=== PATIENT | male | born 1990 | race Caucasian/White ===

== ENCOUNTER 2019-01-05 21:43 | Emergency (ER) | payer OTHER ==
[~2019-01-05] VITALS: Ht 175.3 cm; Wt 99.8 kg
[2019-01-05 22:00] VITALS: BP 170/97
--- NOTE | 2019-01-05 22:28 | PHYS DOC ---
Past Medical History Past Medical History: Anxiety, Asthma, Hypertension Past Surgical History: Other Additional Past Surgical Histo: DENTAL Alcohol Use: Rarely Drug Use: Marijuana Adult General Chief Complaint Chief Complaint: SHOULDER INJURY HPI HPI Patient is a 28 year old male with history of anxiety, hypertension, who presents to the ED today complaining of a throbbing intermittent 9 out of 10 right shoulder pain that began today after he fell. Patient states he was running up some steps when he slipped and fell hitting his right shoulder on a door jam. Denies any loss of consciousness. He states he took marijuana for his pain with slight relief. Review of Systems Review of Systems Constitutional: Denies fever or chills [] Musculoskeletal: Reports right shoulder pain Integument: Denies rash or skin lesions [] Neurologic: Denies headache, focal weakness or sensory changes [] All other systems were reviewed and found to be within normal limits, except as documented in this note. Allergies Allergies Allergies Coded Allergies Type Severity Reaction Last Updated Verified amoxicillin Allergy Unknown Unknown 01/05/19 Yes Physical Exam Physical Exam Constitutional: Well developed, well nourished, no acute distress, non-toxic appearance. [] Skin: Warm, dry, no erythema, no rash. [] Back: No tenderness, no CVA tenderness. [] Extremities: Morbidly obese patient, right shoulder with no obvious deformity. Tenderness on palpation of the right ACM. Full active range of motion to the right shoulder. Adequate radial, medial, ulnar sensation to the right upper extremity. +2 right radial pulse. Cap refill less than 2 seconds the right fingers. Neurologic: Alert and oriented X 3, normal motor function, normal sensory function, no focal deficits noted. [] Psychologic: Affect normal, judgement normal, mood normal. [] Current Patient Data Vital Signs Vital Signs Date Time Temp Pulse Resp B/P (MAP) Pulse Ox O2 Delivery O2 Flow Rate FiO2 01/05/19 22:00 98.7 110 24 96 Room Air 98.7 EKG EKG [] Radiology/Procedures Radiology/Procedures [] Course & Med Decision Making Course & Med Decision Making Pertinent Labs and Imaging studies reviewed. (See chart for details) This is a 28-year-old male patient presenting to the ED today with right shoulder pain after falling on it. Right shoulder x-rays interpreted by Dr. Moreno are negative for any acute findings. Sling provided to the right shoulder by the ED RN, neurovascular exam is intact. Ice elevation encouraged. Discharged with Medrol Dosepak and naproxen. Follow-up with orthopedic doctor in one week if pain continues. Mira Disclaimer Mira Disclaimer This electronic medical record was generated, in whole or in part, using a voice recognition dictation system. Departure Departure Impression: Primary Impression: Fall Additional Impression: Contusion of right shoulder Disposition: HOME, SELF-CARE Condition: STABLE Referrals: KACY ARAYA II, MD follow up in one week Patient Instructions: Contusion, [id number], Fall Prevention and Home Safety Additional Instructions: You were evaluated in the emergency room for right shoulder contusion, your right shoulder x-rays are negative for any acute findings. Use the sling provided as tolerated and needed. Please remove the right upper extremity from the sling every hour and take it through full range of motion. Follow up with your doctor and the provided orthopedic doctor in 1 week Scripts Methylprednisolone (MEDROL) 4 Mg Tab.ds.pk 1 PKG PO UD, #1 PKG Prov: ALEJANDRO COWAN APRN 01/05/19 Problem Qualifiers Primary Impression: Fall Encounter type: initial encounter Qualified Codes: W19.XXXA - Unspecified fall, initial encounter Additional Impression: Contusion of right shoulder Encounter type: initial encounter Qualified Codes: S40.011A - Contusion of right shoulder, initial encounter ALEJANDRO COWAN APRN Jan 05, 2019 22:28
[2019-01-05] MEDS ORDERED: METH4TAB2 PO (22:32)
[2019-01-05] MEDS ORDERED: HYDROcodone/APAP 5/325MG 1 TAB TABLET PO ONE (22:45)
--- NOTE | 2019-01-05 23:07 | RAD ---
Three-view right shoulder radiographs 01/05/2019 CLINICAL HISTORY: Right shoulder pain. AP internal and external rotation and transscapular digital radiographs of the right shoulder were obtained. No fracture or dislocation right shoulder is seen. No significant degenerative changes are noted. IMPRESSION: No fracture or dislocation of the right shoulder is seen. Electronically signed by: Aris Veloz MD (01/05/2019 11:04 PM) [facility]
== END 2019-01-05 22:48 | disposition home or self-care (01) ==
LOC: ER 21:43
DX: S40.011A Contusion of right shoulder, initial encounter (principal); I10 Essential (primary) hypertension; J45.909 Unspecified asthma, uncomplicated; Z88.1 Allergy status to other antibiotic agents; W01.198A Fall on same level from slipping, tripping and stumbling with subsequent striking against other object, initial encounter; Y93.02 Activity, running; Y92.89 Other specified places as the place of occurrence of the external cause; Y99.8 Other external cause status
CPT/HCPCS: 73030; 99284

== ENCOUNTER 2019-03-12 20:13 | Emergency (ER) | payer OTHER ==
[~2019-03-12] VITALS: Ht 175.3 cm; Wt 142.4 kg
[~2019-03-12 20:13] MED LIST: METH4TAB2 PO
[2019-03-12 20:48] VITALS: BP 119/63
[2019-03-12] MEDS ORDERED: DIAZ5TAB PO (21:16)
--- NOTE | 2019-03-12 21:16 | PHYS DOC ---
Past Medical History Past Medical History: Anxiety, Asthma, Hypertension Past Surgical History: Other Additional Past Surgical Histo: DENTAL Alcohol Use: Rarely Drug Use: Marijuana Adult General Chief Complaint Chief Complaint: ANXIETY/PANIC ATTACK HPI HPI 28-year-old male with a history of anxiety states his anxiety is flared up tonight. He states he normally holds his feelings in one his is having some anxiety but tonight he just couldn't do that. He doesn't have any medicine at home to help with his anxiety. He denies any suicidal or homicidal ideation. Came to the emergency department because he states he just can't get comfortable at home.[] Review of Systems Review of Systems Constitutional: Denies fever or chills [] Eyes: Denies change in visual acuity, redness, or eye pain [] HENT: Denies nasal congestion or sore throat [] Respiratory: Denies cough or shortness of breath [] Cardiovascular: No additional information not addressed in HPI [] GI: Denies abdominal pain, nausea, vomiting, bloody stools or diarrhea [] : Denies dysuria or hematuria [] Musculoskeletal: Denies back pain or joint pain [] Integument: Denies rash or skin lesions [] Neurologic: Denies headache, focal weakness or sensory changes [] Endocrine: Denies polyuria or polydipsia [] Psychiatric: Reports anxiety , All other systems were reviewed and found to be within normal limits, except as documented in this note. Allergies Allergies Allergies Coded Allergies Type Severity Reaction Last Updated Verified amoxicillin Allergy Unknown Unknown 01/05/19 Yes Physical Exam Physical Exam Constitutional: Well developed, well nourished, no acute distress, non-toxic appearance. [] HENT: Normocephalic, atraumatic, bilateral external ears normal, oropharynx moist, no oral exudates, nose normal. [] Eyes: PERRLA, EOMI, conjunctiva normal, no discharge. [] Neck: Normal range of motion, no tenderness, supple, no stridor. [] Cardiovascular:Heart rate regular rhythm, no murmur [] Lungs & Thorax: Bilateral breath sounds clear to auscultation [] Abdomen: Bowel sounds normal, soft, no tenderness, no masses, no pulsatile masses. [] Skin: Warm, dry, no erythema, no rash. [] Back: No tenderness, no CVA tenderness. [] Extremities: No tenderness, no cyanosis, no clubbing, ROM intact, no edema. [] Neurologic: Alert and oriented X 3, normal motor function, normal sensory function, no focal deficits noted. [] Psychologic: Extremely anxious. [] EKG EKG [] Radiology/Procedures Radiology/Procedures [] Course & Med Decision Making Course & Med Decision Making Pertinent Labs and Imaging studies reviewed. (See chart for details) [] Dragon Disclaimer Dragon Disclaimer This electronic medical record was generated, in whole or in part, using a voice recognition dictation system. Departure Departure Impression: Primary Impression: Panic attack Disposition: HOME, SELF-CARE Condition: STABLE Referrals: UNKNOWN PCP NAME (PCP) Patient Instructions: Anxiety and Panic Attacks Additional Instructions: Return to the emergency with any new or concerning symptoms Scripts Diazepam (VALIUM) 5 Mg Tablet 5 MG PO Q8HRS PRN for ANXIETY / AGITATION, #5 TAB Prov: TERRENCE DE LA FUENTE DO 03/12/19 TERRENCE DE LA FUENTE DO Mar 12, 2019 21:16
[2019-03-12] MEDS ORDERED: diazePAM 5 MG TABLET PO ONE (21:30)
== END 2019-03-12 21:36 | disposition home or self-care (01) ==
LOC: ER 20:13
DX: F41.0 Panic disorder [episodic paroxysmal anxiety] (principal); I10 Essential (primary) hypertension; J45.909 Unspecified asthma, uncomplicated; Z88.1 Allergy status to other antibiotic agents
CPT/HCPCS: 99284